=== PATIENT | female | born 2005 | race Caucasian/White ===

== ENCOUNTER 2025-02-08 12:33 | Day surgery (SDC) | payer OTHER ==
[2025-02-08] MEDS ORDERED: hydrALAZINE 20 MG/ML VIAL SLOW IVP PRN (12:52)
[2025-02-08 12:53] VITALS: BMI 39.4
[2025-02-08 15:25] LABS: #Basophils 0.06 10x3/uL (0.0-0.2); #Eosinophils 0.13 10x3/uL (0.0-0.5); #Monocytes 1.45 10x3/uL (0.0-1.1); #Neutrophils 9.91 10x3/uL (1.5-8.4); %Basophils 0.4 % (0.0-2.0); %Eosinophils 0.9 % (0.0-6.0); %Lymphocytes 18.0 % (18.0-47.0); %Monocytes 10.2 % (0.0-10.0); %Neutrophils 69.5 % (40.0-75.0); Hematocrit 36.1 % (34.9-44.5); Hemoglobin 12.3 g/dL (12.0-15.5); Mean Corpuscular Hemoglobin 27.8 pg (27.0-33.0); Mean Corpuscular Volume 81.7 fL (81.6-98.3); Platelet Count 413 10x3/uL (150-450); Red Blood Cell (RBC) Count 4.42 10x6/uL (3.90-5.03); White Blood Cell (WBC) Count 14.25 10x3/uL (3.5-10.5)
[2025-02-08 15:44] LABS: ALT (SGPT) 12 U/L (Less than 34); AST (SGOT) 20 U/L (11-34); Albumin 3.2 g/dL (3.1-4.5); Alkaline Phosphatase 109 U/L (40-100); Anion Gap 15 mmol/L (10-20); BUN (Urea Nitrogen) 10 mg/dL (8.4-21.0); Bilirubin, Total 0.3 mg/dL (0.3-1.2); Calc. Creatinine Clearance 271 mL/min (70-130); Calcium 9.7 mg/dL (7.8-10.44); Carbon Dioxide 18 mmol/L (22-29); Chloride 110 mmol/L (98-107); Globulin 3.6 g/dL (2.4-3.5); Glucose 78 mg/dL (70-105); Potassium 4.1 mmol/L (3.5-5.1); Sodium 139 mmol/L (136-145)
[2025-02-08 15:59] LABS: Protein, Urine Random Quant 17.0 mg/dL (1-14)
== END 2025-02-08 16:20 | disposition home or self-care (01) ==
LOC: CSHLD/OP 12:33
PROVIDERS: ATTEND Obstetrics & Gynecology
DX: O36.8130 Decreased fetal movements, third trimester, not applicable or unspecified (principal); O99.891 Other specified diseases and conditions complicating pregnancy; R10.11 Right upper quadrant pain; R00.0 Tachycardia, unspecified; Z3A.33 33 weeks gestation of pregnancy
CPT/HCPCS: 76819; 80053; 82570; 84156; 85025

== ENCOUNTER 2025-02-26 15:08 | Day surgery (SDC) | payer OTHER ==
[2025-02-26] MEDS ORDERED: hydrALAZINE 20 MG/ML VIAL SLOW IVP PRN (16:10)
[2025-02-26 16:32] LABS: #Basophils 0.04 10x3/uL (0.0-0.2); #Eosinophils 0.07 10x3/uL (0.0-0.5); #Monocytes 1.07 10x3/uL (0.0-1.1); #Neutrophils 8.49 10x3/uL (1.5-8.4); %Basophils 0.3 % (0.0-2.0); %Eosinophils 0.6 % (0.0-6.0); %Lymphocytes 15.3 % (18.0-47.0); %Monocytes 9.3 % (0.0-10.0); %Neutrophils 73.5 % (40.0-75.0); Hematocrit 34.9 % (34.9-44.5); Hemoglobin 11.7 g/dL (12.0-15.5); Mean Corpuscular Hemoglobin 27.3 pg (27.0-33.0); Mean Corpuscular Volume 81.4 fL (81.6-98.3); Platelet Count 335 10x3/uL (150-450); Red Blood Cell (RBC) Count 4.29 10x6/uL (3.90-5.03); White Blood Cell (WBC) Count 11.55 10x3/uL (3.5-10.5)
[2025-02-26 16:48] LABS: ALT (SGPT) 12 U/L (Less than 34); AST (SGOT) 22 U/L (11-34); Albumin 3.1 g/dL (3.1-4.5); Alkaline Phosphatase 126 U/L (40-100); Anion Gap 14 mmol/L (10-20); BUN (Urea Nitrogen) 9 mg/dL (8.4-21.0); Bilirubin, Total 0.3 mg/dL (0.3-1.2); Calc. Creatinine Clearance 0 mL/min (70-130); Calcium 8.8 mg/dL (7.8-10.44); Carbon Dioxide 19 mmol/L (22-29); Chloride 111 mmol/L (98-107); Globulin 3.7 g/dL (2.4-3.5); Glucose 71 mg/dL (70-105); Potassium 4.0 mmol/L (3.5-5.1); Sodium 140 mmol/L (136-145)
== END 2025-02-26 19:55 | disposition home or self-care (01) ==
LOC: CSHLAB 15:08 → CSHLD/OP 15:08
PROVIDERS: ATTEND Obstetrics & Gynecology
DX: O9A.213 Injury, poisoning and certain other consequences of external causes complicating pregnancy, third trimester (principal); O47.03 False labor before 37 completed weeks of gestation, third trimester; Z3A.35 35 weeks gestation of pregnancy; Z90.89 Acquired absence of other organs; W19.XXXA Unspecified fall, initial encounter
CPT/HCPCS: 36415; 76815; 80053; 85025; 85460; 86850; 86900; 86901; 99284